=== PATIENT | female | born 1980 | race Caucasian/White ===

== ENCOUNTER 2020-07-11 22:43 | Emergency (ER) | payer MEDICARE, MEDICAID, SELFPAY ==
[2020-07-11 22:53] VITALS: PULSE 68; RESP 20; TEMP 36.9; O2SAT 96; BMI 23.9
--- NOTE | 2020-07-11 22:58 | PC.NURSE ---
Cervical collar applied by this RN. GALVEZ at bedside for primary eval.
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
--- NOTE | 2020-07-11 23:25 | PC.NURSE ---
Pt off to CT on hospital bed.
--- NOTE | 2020-07-11 23:46 | PC.NURSE ---
Pt returns from CT on hospital bed without incident. Awaiting results.
--- NOTE | 2020-07-11 23:50 | PC.NURSE ---
Cervical collar removed per verbal order by . Pt requesting to use the bathroom, ambulating with a nguyen/steady gait.
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
--- NOTE | 2020-07-11 23:58 | PC.NURSE ---
Crystal, pts ride calling inquiring to DC plan. [phone]. This RN to call Crystal when pt is ready for DC.
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
[2020-07-12] MEDS: Acetaminophen 325 MG TABLET 650 MG PO (00:15)
[2020-07-12 00:16] VITALS: BP 119/57; PULSE 68; RESP 20
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
== END 2020-07-12 00:23 | disposition home or self-care (01) ==
PROVIDERS: Emergency Provider Emergency Medicine Emergency Medical Services
DX: S50.11XA Contusion of right forearm, initial encounter (principal); S50.311A Abrasion of right elbow, initial encounter; S00.03XA Contusion of scalp, initial encounter; S00.01XA Abrasion of scalp, initial encounter; S09.90XA Unspecified injury of head, initial encounter; M79.631 Pain in right forearm; M25.521 Pain in right elbow; V43.52XA Car driver injured in collision with other type car in traffic accident, initial encounter; Y93.9 Activity, unspecified; Y92.411 Interstate highway as the place of occurrence of the external cause; Y99.9 Unspecified external cause status
CPT/HCPCS: 70450; 72125; 99283; 99284

== ENCOUNTER 2022-05-19 16:26 | Emergency (ER) | payer MEDICARE, MEDICAID, SELFPAY ==
--- NOTE | ~2022-05-19 | XR_ITS ---
EXAMINATION: XR HAND, LEFT CLINICAL INFORMATION: Left small finger injury COMPARISON: None TECHNIQUE: PA, lateral, and oblique views of the left hand. FINDINGS: Mildly displaced fracture fragment along the dorsal base of the fifth distal phalanx overlying soft tissue swelling consistent with a mallet finger injury. Small exostosis projects from the radial aspect of the tuft of the fifth distal phalanx. The joint spaces throughout the hand and wrist are maintained. No erosions. Minimal osteophyte formation at the IP joint of the thumb consistent with mild osteoarthritis. XR/XR hand LT 2V IMPRESSION: 1. Mildly displaced fracture of the dorsal base of the fifth distal phalanx with overlying soft tissue swelling compatible with a mallet finger injury.
[2022-05-19 16:49] VITALS: BP 122/80; PULSE 75; RESP 18; TEMP 36.5; O2SAT 99; BMI 26.5
--- NOTE | 2022-05-19 19:33 | ED.EXTPRO ---
HPI - Extremity Problem General Chief complaint: Extremity Injury, Upper Stated complaint: injured finger (may be broken) Time Seen by Provider: 05/19/22 19:30 Source: patient Mode of arrival: ambulatory Limitations: no limitations History of Present Illness HPI Narrative: 41-year-old female presents with a left 5th finger deformity injury and swelling after an injury playing basketball. She was previously seen at [facility], had an x-ray that was negative for acute findings. Patient states the finger is in pain, and took Tylenol without any relief. She took off the splint that was provided to her at [facility]. Complaint: extremity pain and extremity swelling Onset (ago): day(s) (1) Pain Consistency: constant Location: left (Fifth finger) Severity scale (1-10): 8 Quality: aching Radiation: none Relieving factors: rest Exacerbating factors: range of motion and palpation Associated symptoms: denies other symptoms Related Data Allergies Allergy/AdvReac Type Severity Reaction Status Date / Time amoxicillin Allergy Intermediate Hives Verified 05/19/22 16:49 clindamycin Allergy Intermediate Hives Verified 05/19/22 16:49 sulfamethoxazole Allergy Intermediate Hives Verified 05/19/22 16:49 [From Bactrim] trimethoprim [From Bactrim] Allergy Intermediate Hives Verified 05/19/22 16:49 Review of Systems Review of Systems: Constitutional: No Fever, No Chills ENT/Mouth: No Ear Pain, No Hoarseness, No sore throat Eyes: No Eye Pain, No Swelling, No Redness, No Foreign Body Cardiovascular: No Chest Pain, No SOB Respiratory: No Cough, No Dyspnea Gastrointestinal: No Nausea, No Vomiting, No Diarrhea, No abdominal Pain Genitourinary: No Dysuria, No Hematuria Musculoskeletal: positive left 5th finger pain, No Myalgias, No Joint Swelling Skin: No Skin lacerations, No rash Neuro: No Weakness, No Numbness, No Paresthesias, No Loss of Consciousness, No Dizziness, No Headache Psych: No Anxiety/Panic, No Depression Heme/Lymph: no easy bruising, no Lymphadenopathy Endocrine: No Polyuria, No Polydipsia Yes all other systems are reviewed and are negative PMFSH Past Medical History Attestation statement: The following information was validated with the patient. Source: old records reviewed Social History Social History Advance Directives: No Advance Directives Information Provided: No Physical Exam Vital Signs: Vital Signs: Last Vital Signs Temp 97.7 F 05/19/22 16:49 Pulse 75 05/19/22 16:49 Resp 18 05/19/22 16:49 BP 122/80 05/19/22 16:49 Pulse Ox 99 05/19/22 16:49 O2 Del Method 05/19/22 16:49 BMI result Body Mass Index 26.5 Appearance: Alert. Oriented X3. No acute distress. Eyes: Pupils equal, round and reactive to light. ENT: Pharynx normal. Neck: Normal inspection. Neck supple. CVS: Normal heart rate and rhythm. Pulses normal. Respiratory: No respiratory distress. Breath sounds normal. Abdomen: Soft and nontender. Skin: Skin warm and dry. Normal skin color. Normal skin turgor. Extremities: No lower extremity edema. Left 5th finger deformity at the PIP, tender to palpation. Brisk capillary refill. Full range of motion to all extremities. Neuro: No motor deficit. No sensory deficit. Cranial nerves 2-12 intact. Course Course Course Narrative: 41-year-old female presents for evaluation for left 5th finger deformity, suspected to be fractured after basketball injury. She states that she was evaluated at [facility] with a negative workup and x-ray. She says the pain is 8/10 and has not been relieved with Tylenol or Motrin. She was given a splint, that she removed. X-rays were completed while patient was in the emergency department waiting room and indicates a mildly displaced fracture. I did discuss reduction of fracture with this patient, however she does not want this procedure completed. I did inform her of the risks versus benefits, and she verbalized understanding that her finger may remain deformed and her range of motion may be reduced after healing. Splint that was provided to her by her prior provider was replaced, and patient was discharged home. Patient verbalized understanding of and agrees to plan of care, understands signs and symptoms indicating need for emergent intervention. MDM - Extremity (Nontraumatic) MDM Narrative Medical decision making narrative: Fracture, dislocation, ecchymosis Imaging Data Left 5th finger x-ray: Attestation: I personally reviewed and interpreted this imaging study as follows: Radiologist's impression: EXAMINATION: XR HAND, LEFT CLINICAL INFORMATION: Left small finger injury? COMPARISON: None? TECHNIQUE: PA, lateral, and oblique views of the left hand. FINDINGS: Mildly displaced fracture fragment along the dorsal base of the fifth distal phalanx overlying soft tissue swelling consistent with a mallet finger injury. Small exostosis projects from the radial aspect of the tuft of the fifth distal phalanx. The joint spaces throughout the hand and wrist are maintained. No erosions. Minimal osteophyte formation at the IP joint of the thumb consistent with mild osteoarthritis.? XR/XR hand LT 2V IMPRESSION: ? 1. Mildly displaced fracture of the dorsal base of the fifth distal phalanx with overlying soft tissue swelling compatible with a mallet finger injury. Discharge Plan Discharge Clinical Impression: Finger fracture Patient Disposition: Home, Self-Care Instructions: Finger Fracture (ED), Splint Care (ED), R.I.C.E. Treatment (ED) Additional Instructions: You were evaluated for finger pain. Your finger is fractured. Please keep the splint in place. Take Tylenol 650 mg every 6 hours as needed for pain management, alternate with Motrin 600 mg every 6 hours as needed. Write down what time you take these medications to prevent accidental overdose. Rest ice and elevate the extremity to help reduce pain and swelling. Thank you for choosing this emergency department for evaluation. Please follow-up with primary care physician as needed. Return to the emergency department for any new, concerning, or worsening symptoms. Stand Alone Forms: Work/School Release Interventions: ED Discharge Assessment Last Done: 05/19/22 20:30 Discharge Date/Time: 05/19/22 20:31
== END 2022-05-19 20:31 | disposition home or self-care (01) ==
PROVIDERS: Emergency Provider Emergency Medicine Emergency Medical Services
DX: S62.637A Displaced fracture of distal phalanx of left little finger, initial encounter for closed fracture (principal); W21.05XA Struck by basketball, initial encounter; Y93.67 Activity, basketball; Y92.9 Unspecified place or not applicable; Y99.9 Unspecified external cause status
CPT/HCPCS: 73120; 99282; 99283